=== PATIENT | male | born 1945 | race Caucasian/White ===

== ENCOUNTER 2017-02-15 19:06 | Inpatient (IN) | payer OTHER ==
[~2017-02-15] VITALS: Ht 172.7 cm; Wt 67.4 kg
[~2017-02-15 19:06] MED LIST: CUBICIN500 MG/10 IV; Feosol PO; LACTINEX,FLO1 PACKET PO; LEVAQUIN500 MG PO; Maxipime IV; RED YEAST RICE600 MG PO; Theragran-M,Centrum, PO; Tylenol Regular Stre PO
[2017-02-15 20:25] LABS: MCH 27.3 PG (29.0-34.0); MCV 82.8 FL (86-99); MEAN PLAT.VOLUME 8.8 uM^3 (9.0-12.4); PLATELET COUNT 472 K/uL (156-360); RBC DIS.WIDTH-CV 13.9 % (11.8-14.6); RBC DIS.WIDTH-SD 41.9 % (39-53); RED BLOOD COUNT 4.47 M/uL (4.00-5.50); WHITE BLOOD COUNT 12.9 K/uL (4.1-10.2)
[2017-02-15 20:36] LABS: CHLORIDE 98 mEq/L (99-109); POTASSIUM 4.1 mEq/L (3.7-5.4); SODIUM 131 mEq/L (136-147)
[2017-02-15 20:38] LABS: GLUCOSE 160 mg/dL (70-99)
[2017-02-15 20:39] LABS: ANION GAP 10 MEQ/L (2-14)
[2017-02-15 20:41] LABS: GFR ESTIMATE (CALCULATED) > 59 mL/min/
[2017-02-15 20:42] LABS: UREA NITROGEN (BUN) 15 mg/dL (9-23)
[2017-02-15 22:01] LABS: ADD MIUA? YES; BILIRUBIN NEGATIVE; BLOOD MODERATE; COLOR AMBER ((YELLOW)); GLUCOSE (STRIP) NEGATIVE; KETONES NEGATIVE; LEUKOCYTES LARGE; NITRITE POSITIVE; PROTEIN (STRIP) 100; SPECIFIC GRAVITY 1.023 (1.000-1.030)
[2017-02-15 22:13] LABS: BACTERIA 3+ /HPF; EPITHELIAL CELLS RARE /HPF; MUCUS 2+ /LPF; RED BLOOD CELLS 0-5 /HPF (0-5); UCUL ADDED? YES; WHITE BLOOD CELLS TNTC /HPF (0-5)
[2017-02-15] MEDS ORDERED: DAILY VALUE1 EACH PO (22:58)
[2017-02-15 23:35] LABS: INTER. NORMALIZED RATIO 1.1; PROTHROMBIN TIME 11.9 SEC (10.2-12.9)
[2017-02-15 23:38] LABS: PTT 36.6 SEC (25-37)
[2017-02-16] VITALS (7 sets, daily range): BP systolic 95–125; BP diastolic 54–68
[2017-02-16 02:00] LABS: BAND NEUTROPHILS 1.8 % (0-8.0); EOSINOPHIL ABS CT 0.1; EOSINOPHILS 0.9 % (0-5.0); LYMPHOCYTES 5.3 % (15.0-45.0); PLAT.SUFFICIENCY INCREASED; SEG.NEUTROPHILS 83.2 % (46.0-76.0); SPHEROCYTES 2+; TEAR DROP CELLS 1+
[2017-02-16 03:12] LABS: TOTAL BILIRUBIN 0.5 mg/dL (0.0-1.0)
[2017-02-16 03:13] LABS: ALKALINE PHOSPHATASE 132 IU/L (3-129)
[2017-02-16 03:16] LABS: DIRECT BILIRUBIN 0.3 mg/dL (0.0-0.3)
[2017-02-16 06:31] LABS: EOSINOPHIL (%) 1.2 % (0-5); EOSINOPHIL COUNT 0.2 K/uL (0-0.3); IMMATURE GRANULOCYTE COUNT 0.1 K/uL; INSTRUMENT ABS NEUTROPHIL CT 9.7 K/uL; LYMPHOCYTE COUNT 0.9 K/uL (1.0-2.8); MCH 28.4 PG (29.0-34.0); MCHC 33.8 G/DL (30.0-36.0); MCV 84.1 FL (86-99); MEAN PLAT.VOLUME 8.9 uM^3 (9.0-12.4); MONOCYTE (%) 14.4 % (3-12); MONOCYTE COUNT 1.9 K/uL (0-0.8); NEUTROPHIL COUNT 9.7 K/uL (1.8-6.4); PLATELET COUNT 382 K/uL (156-360); RBC DIS.WIDTH-CV 14.1 % (11.8-14.6); RBC DIS.WIDTH-SD 43.4 % (39-53); WHITE BLOOD COUNT 12.8 K/uL (4.1-10.2)
[2017-02-16 06:34] LABS: RED BLOOD COUNT 3.45 M/uL (4.00-5.50)
[2017-02-16 06:45] LABS: ABS NEUTROPHIL COUNT 10.5; BAND NEUTROPHILS 0.9 % (0-8.0); BURR CELLS 1+; EOSINOPHIL ABS CT 0.5; EOSINOPHILS 3.6 % (0-5.0); HELMET CELLS 1+; HEMATOLOGY COMMENT 1 SN; LYMPHOCYTES 4.4 % (15.0-45.0); PLAT.SUFFICIENCY ADEQUATE; POIKILOCYTOSIS 1+; POLYCHROMASIA 1+; SEG.NEUTROPHILS 81.4 % (46.0-76.0); TEAR DROP CELLS 1+
[2017-02-16 11:13] LABS: ERTH.SED.RATE 88 MM/HR (0-20)
[2017-02-17 03:43] VITALS: BP 107/66
[2017-02-17 07:58] LABS: ALKALINE PHOSPHATASE 95 IU/L (3-129); ANION GAP 11 MEQ/L (2-14); CHLORIDE 97 MEQ/L (99-109); GFR ESTIMATE (CALCULATED) > 59 mL/min/; POTASSIUM 4.2 MEQ/L (3.7-5.4); SAMPLE HEMOLYSIS CHECK 0; SAMPLE ICTERIC CHECK 0; SAMPLE LIPEMIA CHECK 0; SODIUM 131 MEQ/L (136-147); TOTAL BILIRUBIN 0.7 MG/DL (0.0-1.0); UREA NITROGEN (BUN) 10 mg/dL (9-23)
[2017-02-17 07:59] LABS: GLUCOSE 85 mg/dL (70-99)
[2017-02-17 08:29] VITALS: BP 111/72
[2017-02-17 12:05] VITALS: BP 121/73
[2017-02-17 15:13] VITALS: BP 109/60
[2017-02-17 19:18] VITALS: BP 104/55
[2017-02-17 23:26] VITALS: BP 113/61
[2017-02-18 03:53] VITALS: BP 109/59
[2017-02-18 08:23] VITALS: BP 107/64
[2017-02-18 12:00] VITALS: BP 106/57
[2017-02-18 16:15] VITALS: BP 104/64
[2017-02-18 19:49] VITALS: BP 117/68
[2017-02-18 23:40] VITALS: BP 115/66
[2017-02-19 03:34] VITALS: BP 119/71
[2017-02-19 06:12] LABS: EOSINOPHIL (%) 7.7 % (0-5); EOSINOPHIL COUNT 0.6 K/uL (0-0.3); HEMATOCRIT 31.8 % (38.0-50.0); IMMATURE GRANULOCYTE (%) 0.8 % (0.0-0.7); IMMATURE GRANULOCYTE COUNT 0.1 K/uL; INSTRUMENT ABS NEUTROPHIL CT 5.1 K/uL; LYMPHOCYTE COUNT 1.1 K/uL (1.0-2.8); MCH 27.7 PG (29.0-34.0); MCHC 32.7 G/DL (30.0-36.0); MCV 84.8 FL (86-99); MEAN PLAT.VOLUME 8.6 uM^3 (9.0-12.4); MONOCYTE COUNT 0.7 K/uL (0-0.8); NEUTROPHIL (%) 68.3 % (45-76); NEUTROPHIL COUNT 5.1 K/uL (1.8-6.4); PLATELET COUNT 412 K/uL (156-360); RBC DIS.WIDTH-CV 14.3 % (11.8-14.6); RBC DIS.WIDTH-SD 44.3 % (39-53); RED BLOOD COUNT 3.75 M/uL (4.00-5.50); WHITE BLOOD COUNT 7.5 K/uL (4.1-10.2)
[2017-02-19 06:37] LABS: ANION GAP 5 MEQ/L (2-14); CHLORIDE 102 MEQ/L (99-109); GFR ESTIMATE (CALCULATED) > 59 mL/min/; GLUCOSE 87 mg/dL (70-99); POTASSIUM 4.8 MEQ/L (3.7-5.4); SAMPLE HEMOLYSIS CHECK 0; SAMPLE ICTERIC CHECK 0; SAMPLE LIPEMIA CHECK 0; SODIUM 137 MEQ/L (136-147); UREA NITROGEN (BUN) 12 mg/dL (9-23)
[2017-02-19 08:53] VITALS: BP 115/70
[2017-02-19 12:33] VITALS: BP 132/89
[2017-02-19 15:50] VITALS: BP 126/79
[2017-02-19 19:50] VITALS: BP 107/62
[2017-02-20 00:31] VITALS: BP 131/75
[2017-02-20 03:45] VITALS: BP 100/62
[2017-02-20 08:03] VITALS: BP 112/69
[2017-02-20 11:46] VITALS: BP 117/75
[2017-02-20 17:11] LABS: POINT-OF-CARE METER ID UU14188625
[2017-02-20 19:47] VITALS: BP 115/70
[2017-02-20 23:35] VITALS: BP 113/73
[2017-02-21 03:59] VITALS: BP 120/70
[2017-02-21 05:53] LABS: HEMATOCRIT 34.5 % (38.0-50.0); MCH 26.5 PG (29.0-34.0); MCHC 31.3 G/DL (30.0-36.0); MCV 84.8 FL (86-99); MEAN PLAT.VOLUME 8.4 uM^3 (9.0-12.4); PLATELET COUNT 426 K/uL (156-360); RBC DIS.WIDTH-CV 14.4 % (11.8-14.6); RBC DIS.WIDTH-SD 43.9 % (39-53); RED BLOOD COUNT 4.07 M/uL (4.00-5.50); WHITE BLOOD COUNT 8.6 K/uL (4.1-10.2)
[2017-02-21 06:17] LABS: ANION GAP 8 MEQ/L (2-14); CHLORIDE 100 MEQ/L (99-109); GFR ESTIMATE (CALCULATED) > 59 mL/min/; GLUCOSE 85 mg/dL (70-99); POTASSIUM 4.7 MEQ/L (3.7-5.4); SAMPLE HEMOLYSIS CHECK 0; SAMPLE ICTERIC CHECK 0; SAMPLE LIPEMIA CHECK 0; SODIUM 133 MEQ/L (136-147); UREA NITROGEN (BUN) 15 mg/dL (9-23)
[2017-02-21 08:46] VITALS: BP 131/76
[2017-02-21 16:14] VITALS: BP 133/78
[2017-02-22 00:11] VITALS: BP 125/77
[2017-02-22 07:46] VITALS: BP 111/61
[2017-02-22] MEDS ORDERED: AUGMENTIN875 MG PO (10:22)
[2017-02-22] MEDS ORDERED: FLORASTOR250 MG PO (15:06)
[2017-02-22 16:15] VITALS: BP 128/72
== END 2017-02-22 16:59 | disposition home or self-care (01) | DRG 981 ==
LOC: EME 19:06 → EDOF 23:16 → 5SOUTH 23:16 → ENRESERV 23:17 → 5SOUTH 02-16 01:18
PROVIDERS: Internal Medicine; Physician Assistant Medical
DX: L89.314 Pressure ulcer of right buttock, stage 4 (principal); L89.523 Pressure ulcer of left ankle, stage 3; L89.612 Pressure ulcer of right heel, stage 2; N39.0 Urinary tract infection, site not specified; B96.20 Unspecified Escherichia coli [E. coli] as the cause of diseases classified elsewhere; E87.1 Hypo-osmolality and hyponatremia; K59.00 Constipation, unspecified; G82.20 Paraplegia, unspecified; F40.240 Claustrophobia; D64.9 Anemia, unspecified; M86.60 Other chronic osteomyelitis, unspecified site; N31.9 Neuromuscular dysfunction of bladder, unspecified; N35.9 Urethral stricture, unspecified; N36.5 Urethral false passage; N99.820 Postprocedural hemorrhage of a genitourinary system organ or structure following a genitourinary system procedure; R32 Unspecified urinary incontinence; R00.0 Tachycardia, unspecified; K21.9 Gastro-esophageal reflux disease without esophagitis; R73.9 Hyperglycemia, unspecified; F41.9 Anxiety disorder, unspecified; E78.5 Hyperlipidemia, unspecified; S24.103S Unspecified injury at T7-T10 level of thoracic spinal cord, sequela; Z87.891 Personal history of nicotine dependence; Z74.01 Bed confinement status; Z88.1 Allergy status to other antibiotic agents; Z86.14 Personal history of Methicillin resistant Staphylococcus aureus infection
CPT/HCPCS: 71010; 74000; 80048; 80053; 80076; 81003; 82948; 83605; 85007; 85025; 85027; 85610; 85651; 85730; 87040; 87070; 87075; 87076; 87077; 87086 GA; 87106; 87185; 87186; 87205; 87801; 88305; 93005; 99281; 99285; C1769; J0696; J1644; J2020; J2250; J2405; J2543; J2765; J3010; J7030; J7050; J7120

== ENCOUNTER 2017-04-06 13:09 | Day surgery (SDC) | payer OTHER ==
[~2017-04-06] VITALS: Ht 175.3 cm; Wt 74.6 kg
[~2017-04-06 13:09] MED LIST changes: +AUGMENTIN875 MG PO; +DAILY VALUE1 EACH PO; +FLORASTOR250 MG PO
[2017-04-06 13:28] LABS: HEMATOCRIT 35.6 % (38.0-50.0); MCH 26.1 PG (29.0-34.0); MCHC 31.2 G/DL (30.0-36.0); MCV 83.8 FL (86-99); MEAN PLAT.VOLUME 8.3 uM^3 (9.0-12.4); PLATELET COUNT 466 K/uL (156-360); RBC DIS.WIDTH-CV 16.4 % (11.8-14.6); RED BLOOD COUNT 4.25 M/uL (4.00-5.50); WHITE BLOOD COUNT 8.9 K/uL (4.1-10.2)
[2017-04-06 13:39] LABS: CHLORIDE 104 mEq/L (99-109); SODIUM 141 mEq/L (136-147)
[2017-04-06 13:40] LABS: GLUCOSE 99 mg/dL (70-99)
[2017-04-06 13:42] LABS: ANION GAP 14 MEQ/L (2-14)
[2017-04-06 13:44] LABS: GFR ESTIMATE (CALCULATED) > 59 mL/min/
[2017-04-06 13:45] LABS: UREA NITROGEN (BUN) 13 mg/dL (9-23)
[2017-04-06 14:09] VITALS: BP 116/78
[2017-04-06 20:00] VITALS: BP 133/79
[2017-04-07] VITALS: BP 114/68
[2017-04-07 04:42] VITALS: BP 116/68
[2017-04-07 07:46] VITALS: BP 124/74
== END 2017-04-07 10:34 | disposition home or self-care (01) ==
LOC: SDC 13:09 → EDSTATUS 13:20 → SDC 13:21 → 2SOUTH 18:00 → 2EASTP 18:00 → SDC 18:28 → ENRESERV 18:37 → 2EASTP 19:44
PROVIDERS: Surgery Plastic and Reconstructive Surgery
DX: L89.314 Pressure ulcer of right buttock, stage 4 (principal); G82.20 Paraplegia, unspecified; R00.0 Tachycardia, unspecified; Z87.828 Personal history of other (healed) physical injury and trauma
CPT/HCPCS: 80048; 85027; 86850; 86860; 86870; 86880; 86900; 86901; 86905; 86920; 87070; 87075; 87076; 87077; 87185; 87186; 87205; 88305; 93005; G0378; J0131; J0330; J0690; J1100; J2405; J3010; J7050

== ENCOUNTER → 2017-05-01 | Outpatient (CLI) | payer OTHER | END | disposition home or self-care (01) | LOC: AMB 09:45 | DX: T81.31XA Disruption of external operation (surgical) wound, not elsewhere classified, initial encounter (principal); Y83.2 Surgical operation with anastomosis, bypass or graft as the cause of abnormal reaction of the patient, or of later complication, without mention of misadventure at the time of the procedure | CPT/HCPCS: 99212 ==

== ENCOUNTER → 2017-08-17 | Outpatient (CLI) | payer OTHER | END | disposition home or self-care (01) | LOC: RAD 12:00 | DX: T81.33XD Disruption of traumatic injury wound repair, subsequent encounter (principal) | CPT/HCPCS: 73590 ==